=== PATIENT | male | born 1985 | race Caucasian/White ===

== ENCOUNTER 2021-07-09 21:45 | Emergency (ER) | payer OTHER ==
[2021-07-09 21:51] VITALS: BP 140/94; PULSE 80; TEMP 97.7; BMI 36.5
[2021-07-09] MEDS ORDERED: KETOROLAC TROMETHAMINE 30 MG/1 ML VIAL IM ONE (22:33)
[2021-07-09] MEDS ORDERED: KETOROLAC TROMETHAMINE 30 MG/1 ML VIAL ONE (22:44)
== END 2021-07-09 22:55 | disposition home or self-care (01) ==
LOC: JERFT 21:45
PROC: 3E0233Z Introduction of Anti-inflammatory into Muscle, Percutaneous Approach (ICD-10-PCS; principal; 2021-07-09)
DX: K08.89 Other specified disorders of teeth and supporting structures (principal)
CPT/HCPCS: 99284-25

== ENCOUNTER 2025-05-10 10:20 | Emergency (ER) | payer OTHER ==
[2025-05-10 10:36] VITALS: BP 117/70; PULSE 66; RESP 18; TEMP 98; BMI 24.7
[2025-05-10] MEDS ORDERED: IBUPROFEN 400 MG TABLET (FP) PO ONE (12:20)
[2025-05-10] MEDS ORDERED: SULFAMETHOXAZOLE/TRIMETHOPRIM 800MG/160MG D.S. TABLET ONE (12:21)
[2025-05-10] MEDS ORDERED: ACETAMINOPHEN 500 MG TABLET (FP) ONE (12:21)
[2025-05-10] MEDS: SULFAMETHOXAZOLE/TRIMETHOPRIM 800MG/160MG D.S. TABLET PO ONE (12:23)
[2025-05-10] MEDS: ACETAMINOPHEN 500 MG TABLET (FP) PO ONE (12:23)
[2025-05-10] MEDS: IBUPROFEN 400 MG TABLET (FP) PO ONE (12:23)
== END 2025-05-10 12:25 | disposition home or self-care (01) ==
LOC: JERFT 10:20
PROC: 0H9FX0Z Drainage of Right Hand Skin with Drainage Device, External Approach (ICD-10-PCS; principal; 2025-05-10)
DX: L02.411 Cutaneous abscess of right axilla (principal)
CPT/HCPCS: 10060; 99283-25